=== PATIENT | female | born 1990 | race Caucasian/White ===

== ENCOUNTER 2022-12-03 14:32 | Emergency (ER) | payer OTHER ==
[2022-12-03 15:02] VITALS: TEMP 98.8; BMI 24.4
[2022-12-03 17:23] LABS: URINE APPEARANCE CLEAR; URINE BILIRUBIN NEGATIVE (NEGATIVE); URINE COLOR DK YELLOW; URINE GLUCOSE (UA) NEGATIVE (NEGATIVE); URINE KETONE 3+ (NEGATIVE); URINE LEUK ESTERASE NEGATIVE (NEGATIVE); URINE NITRITE NEGATIVE (NEGATIVE); URINE PROTEIN TRACE (NEGATIVE)
[2022-12-03] MEDS ORDERED: SODIUM CHLORIDE 0.9% 500 ML INFUS.BAG IV ONE (17:27)
[2022-12-03] MEDS ORDERED: MAG HYDROX/AL HYDROX/SIMETH 30 ML UNIT-DOSE CUP PO ONE (17:27)
[2022-12-03] MEDS ORDERED: ACETAMINOPHEN 1000 MG/100 ML BAG IVPB ONE (17:27)
[2022-12-03] MEDS ORDERED: ONDANSETRON 4 MG/2 ML VIAL IVPUSH ONE (17:27)
[2022-12-03 17:48] LABS: HCG,QUALITATIVE URINE NEGATIVE
[2022-12-03] MEDS ORDERED: MAG HYDROX/AL HYDROX/SIMETH 30 ML UNIT-DOSE CUP ONE (17:57)
[2022-12-03] MEDS ORDERED: ONDANSETRON 4 MG/2 ML VIAL ONE (17:57)
[2022-12-03 19:01] LABS: BASO % 0.2 % (0-2.0); EOS % 0.3 % (0-4.5); HEMATOCRIT 40.7 % (32.4-45.2); HEMOGLOBIN 13.6 GM/dL (10.7-15.3); LYMPH % 19.4 % (8-40); MCH 28.6 pg (25.7-33.7); MCHC 33.4 g/dl (32.0-36.0); MEAN CELL VOLUME 85.6 fl (80-96); MEAN PLT VOLUME 9.3 fl (7.5-11.1); NEUT % 75.1 % (42.8-82.8); PLATELET COUNT 196 10^3/uL (134-434); RBC 4.76 M/mm3 (3.60-5.2); RDW 12.7 % (11.6-15.6); WHITE BLOOD COUNT 6.2 K/mm3 (4.0-10.0)
[2022-12-03 19:14] LABS: CALCIUM 8.6 mg/dL (8.5-10.1)
[2022-12-03 19:15] LABS: ALBUMIN 3.5 g/dl (3.4-5.0)
[2022-12-03 19:18] LABS: CREATININE 0.6 mg/dL (0.55-1.3)
[2022-12-03 19:19] LABS: BILIRUBIN,TOTAL 0.4 mg/dL (0.2-1)
[2022-12-03 19:41] VITALS: BP 104/69; PULSE 89; RESP 16
== END 2022-12-03 20:41 | disposition home or self-care (01) ==
LOC: JER 14:32
PROC: 3E033GC Introduction of Other Therapeutic Substance into Peripheral Vein, Percutaneous Approach (ICD-10-PCS; principal; 2022-12-03)
DX: R11.10 Vomiting, unspecified (principal)
CPT/HCPCS: 0241U-QW; 36415; 80053; 81003; 83690; 84703; 85025; 87086; 99284-25